=== PATIENT | female | born 1980 | race Caucasian/White ===

== ENCOUNTER 2019-08-21 11:26 | Emergency (ER) | payer SELFPAY ==
[2019-08-21 11:39] VITALS: BP 112/68; PULSE 68; TEMP 98; BMI 17.2
[2019-08-21] MEDS ORDERED: METOCLOPRAMIDE HCL INJECTION 10 MG/2 ML VIAL IVPB ONE (12:32)
[2019-08-21] MEDS ORDERED: KETOROLAC TROMETHAMINE 30 MG/1 ML VIAL IVPUSH ONE (12:32)
[2019-08-21] MEDS ORDERED: SODIUM CHLORIDE 1,000 ML IV STA ×2 (12:32→14:42)
[2019-08-21] MEDS ORDERED: METOCLOPRAMIDE HCL INJECTION 10 MG/2 ML VIAL ONE (12:56)
[2019-08-21] MEDS ORDERED: KETOROLAC TROMETHAMINE 30 MG/1 ML VIAL ONE (12:56)
--- NOTE | 2019-08-21 13:02 | PDOC ---
History of Present Illness - General Chief Complaint: Weakness Stated Complaint: INSOMNIA Time Seen by Provider: 08/21/19 12:06 History Source: Patient Exam Limitations: No Limitations - History of Present Illness Initial Comments: 08/21/19 13:13 39-year-old female presents to ED with complaints of intermittent frontal throbbing pressure over the past week. Patient states on Monday went to [facility] for headache since Tylenol and Motrin were not relieving her discomfort. The patient has history of headaches but states that have a head CT done there. Patient states was also given Ultram and Toradol where she had a reaction to the Ultram causing her to have a rash and now is been taking prednisone which is causing her difficulty to sleep. Patient states has generalized weakness now without fever, chills, visual changes, abdominal pain, chest pain, or change in appetite. Patient does state feels very anxious since taking the prednisone. Is this a multiple visit Asthma Patient?: No Timing/Duration: intermittent Severity: mild Associated Symptoms: reports: headaches, weakness Past History - Past Medical History Allergies/Adverse Reactions: Allergies Allergy/AdvReac Type Severity Reaction Status Date / Time tramadol Allergy Verified 08/21/19 11:39 Home Medications: Ambulatory Orders Unobtainable Home Med List 0 dose .ROUTE UTDICT 08/29/13 Cephalexin Monohydrate [Keflex -] 500 mg PO BID #14 capsule 09/05/13 Fluconazole [Diflucan -] 150 mg PO ONCE #1 tablet 10/01/13 Nitrofurantoin Monohyd/M-Cryst [Macrobid -] 100 mg PO BID #14 capsule 10/01/13 Terconazole [Terazol 7] 45 gm VG HS #7 cream.appl 10/01/13 COPD: No - Psycho Social/Smoking Cessation Hx Smoking Status: No Smoking History: Never smoked Number of Cigarettes Smoked Daily: 0 Information on smoking cessation initiated: No Hx Alcohol Use: No Drug/Substance Use Hx: No Review of Systems - Review of Systems Able to Perform ROS?: Yes Constitutional: Yes: Weakness HEENTM: No: Symptoms Reported Respiratory: No: Symptoms reported Cardiac (ROS): No: Symptoms Reported ABD/GI: No: Symptoms Reported : No: Symptoms Reported Musculoskeletal: No: Symptoms Reported Integumentary: No: Symptoms Reported Neurological: Yes: Headache Endocrine: No: Symptoms Reported Hematologic/Lymphatic: No: Symptoms Reported *Physical Exam - Vital Signs Last Vital Signs Temp Pulse Resp BP Pulse Ox 98 F 68 19 112/68 100 08/21/19 11:36 08/21/19 11:36 08/21/19 11:36 08/21/19 11:36 08/21/19 11:36 - Physical Exam General Appearance: Yes: Nourished, Appropriately Dressed. No: Apparent Distress (Hold) HEENT: positive: EOMI, NISHA, TMs Normal, Pharynx Normal. negative: Pale Conjunctivae Neck: positive: Supple Respiratory/Chest: positive: Lungs Clear, Normal Breath Sounds. negative: Respiratory Distress, Accessory Muscle Use Cardiovascular: positive: Regular Rhythm, Regular Rate. negative: Murmur Gastrointestinal/Abdominal: positive: Soft. negative: Tenderness Integumentary: positive: Normal Color, Warm, Moist Neurologic: positive: Normal Mood/Affect, Motor Strength 5/5. negative: Sensory Deficit ED Treatment Course - LABORATORY CBC & Chemistry Diagram: 08/21/19 13:00 08/21/19 13:16 Medical Decision Making - Medical Decision Making 08/21/19 13:07 Chief complaint: Intermittent headache for the past week now with difficulty sleeping and feeling anxious. Patient was given prednisone after having a reaction to Ultram in the ER on Monday Exam vital signs stable no neuro focal deficits anxious appearing. Plan: labs, IV fluids, Reglan, Toradol and urine ordered 08/21/19 15:00 Laboratory Tests 08/21/19 08/21/19 08/21/19 13:00 13:00 13:00 WBC 6.3 Hgb 16.1 H Hct 46.4 H Absolute Neuts (auto) 3.7 Sodium Potassium Chloride Carbon Dioxide Anion Gap BUN Creatinine Random Glucose Calcium Total Bilirubin AST ALT Alkaline Phosphatase Total Protein Albumin Lipase Urine Ketones 3+ H Urine Blood 1+ H Urine Nitrite Negative Urine Bilirubin Negative Ur Leukocyte Esterase Trace Urine WBC (Auto) 1 Urine HCG, Qual Negative 08/21/19 13:16 WBC Hgb Hct Absolute Neuts (auto) Sodium 140 Potassium 3.7 Chloride 105 Carbon Dioxide 25 Anion Gap 10 BUN 10.4 Creatinine 0.8 Random Glucose 76 Calcium 9.6 Total Bilirubin 2.1 H AST 17 ALT 21 Alkaline Phosphatase 48 Total Protein 8.4 H Albumin 4.5 Lipase 128 Urine Ketones Urine Blood Urine Nitrite Urine Bilirubin Ur Leukocyte Esterase Urine WBC (Auto) Urine HCG, Qual Patient states headache has resolved and feeling better. Patient receiving second liter of fluid secondary to 3+ ketones in urine. Patient will be discharged home with recommendations to continue previous medications and follow -up with neurologist Discharge - Discharge Information Problems reviewed: Yes Clinical Impression/Diagnosis: Anxiety, Headache Condition: Improved Disposition: HOME - Follow up/Referral Referrals: Hattie Conrad MD [Staff Physician] - - Patient Discharge Instructions Patient Printed Discharge Instructions: DI for Migraine Additional Instructions: Drink plenty of fluids. Continue to take medication as prescribed. Avoid triggers. Follow-up with referred neurologist. - Post Discharge Activity
[2019-08-21 13:29] LABS: BASO % 1.2 % (0-2.0); EOS % 0.3 % (0-4.5); HEMATOCRIT 46.4 % (32.4-45.2); HEMOGLOBIN 16.1 GM/dL (10.7-15.3); LYMPH % 31.4 % (8-40); MCH 31.2 pg (25.7-33.7); MCHC 34.7 g/dl (32.0-36.0); MEAN CELL VOLUME 89.8 fl (80-96); MEAN PLT VOLUME 9.4 fl (7.5-11.1); NEUT % 59.1 % (42.8-82.8); PLATELET COUNT 220 K/MM3 (134-434); RBC 5.17 M/mm3 (3.60-5.2); RDW 12.9 % (11.6-15.6); WHITE BLOOD COUNT 6.3 K/mm3 (4.0-10.0)
[2019-08-21 14:03] LABS: ALBUMIN 4.5 g/dl (3.4-5.0); BILIRUBIN,TOTAL 2.1 mg/dL (0.2-1); BLOOD UREA NITROGEN 10.4 mg/dL (7-18); CALCIUM 9.6 mg/dL (8.5-10.1); CREATININE 0.8 mg/dL (0.55-1.3); POTASSIUM 3.7 mmol/L (3.5-5.1); TOT PROT 8.4 g/dl (6.4-8.2)
[2019-08-21 14:29] LABS: EPI CELLS 0.6 /HPF (0-5/HPF); HYALINE CASTS 0 /lpf (0-8); PH,URINE 6.5 (5.0-8.0); URINE APPEARANCE CLEAR; URINE BACTERIA 2.4 /hpf (NEGATIVE); URINE BILIRUBIN NEGATIVE (NEGATIVE); URINE COLOR YELLOW; URINE GLUCOSE (UA) NEGATIVE (NEGATIVE); URINE KETONE 3+ (NEGATIVE); URINE LEUK ESTERASE TRACE (NEGATIVE); URINE NITRITE NEGATIVE (NEGATIVE); URINE PROTEIN NEGATIVE (NEGATIVE); URINE RBC 0 /hpf (0-4); URINE UROBILINOGEN 0.2 mg/dL (0.2-1.0); URINE WBC 1 /hpf (0-5)
[2019-08-21] MEDS ORDERED: LORazepam 2 MG/ML SDV VIAL ONE (14:29)
== END 2019-08-21 15:52 | disposition home or self-care (01) ==
LOC: JER 11:26
PROC: 3E0333Z Introduction of Anti-inflammatory into Peripheral Vein, Percutaneous Approach (ICD-10-PCS; principal; 2019-08-21)
PROC: 3E033NZ Introduction of Analgesics, Hypnotics, Sedatives into Peripheral Vein, Percutaneous Approach (ICD-10-PCS; 2019-08-21)
PROC: 3E033GC Introduction of Other Therapeutic Substance into Peripheral Vein, Percutaneous Approach (ICD-10-PCS; 2019-08-21)
PROC: 3E0337Z Introduction of Electrolytic and Water Balance Substance into Peripheral Vein, Percutaneous Approach (ICD-10-PCS; 2019-08-21)
DX: F41.9 Anxiety disorder, unspecified (principal); R51 Headache; Z88.8 Allergy status to other drugs, medicaments and biological substances
CPT/HCPCS: 36415; 80053; 81003; 83690; 84703; 85025; 99282-25; J7030